=== PATIENT | female | born 1990 | race Caucasian/White ===

== ENCOUNTER 2023-02-12 18:08 | Inpatient (IN) | payer OTHER, SELFPAY ==
[2023-02-12 18:40] VITALS: BMI 30.3
--- NOTE | 2023-02-12 19:06 | PC.NURSE ---
pt arrive on unit at 1815. staff perform skin check and pt signed a CV. pt was placed on 5 min check and safety tray due to history of cutting.
[2023-02-12] MEDS: clonazePAM 0.5 MG TABLET 1.5 MG PO (20:27)
[2023-02-12] MEDS: Acetaminophen 325 MG TABLET 650 MG PO (20:28)
--- NOTE | 2023-02-12 20:50 | HO.PM.IMCN ---
History of Present Illness Data of Consult Service Date: 02/12/23 Primary Care Provider: Unknown Physician HPI Reason for consult: Admission H&P Pt is a 32-year-old female with a PMH significant for?ADHD, PTSD, borderline personality disorder, MDD with psychotic features, self harm behaviors, and multiple psychiatric hospitalizations who is admitted to [facility] psychiatry unit for increased anxiety, incoherent speech, and disorganized thoughts. Patient apparently went into a gas station to purchase gas, gave them 20 dollars, and then found of the gas pump was not working, which worsened her underlying anxiety. Medical consult for admission H&P. Attempted to see patient in her room, but patient refused interview and examination. Said that she did not want to talk at this time. When asked if she had any acute medical complaints, patient reported only having a headache. Review of Systems Review of Systems: Headache Patient denies any other acute medical complaints at this time Yes all other systems are reviewed and are negative PMFSH Social History Advance Directives: No Meds Allergies Allergy/AdvReac Type Severity Reaction Status Date / Time seafood Allergy Unknown Verified 02/12/23 18:24 Active Medications: Current Medications Acetaminophen (Acetaminophen 325 Mg Tablet) 650 mg PO Q6H PRN PRN Reason: Headache/Pain Mild Scale (1-3) Last Admin: 02/12/23 20:28 Dose: 650 mg Al Hydroxide/Mg Hydroxide (Magnesium Hydrox/Alum Hydrox 30 Ml Oral.Susp) 30 ml PO Q6H PRN PRN Reason: Heartburn/Nausea Amphetamine/Dextroamphetamine (Amphetamine Mixed Salts 10 Mg Tablet) 10 mg PO TID SERENITY Clonazepam (Clonazepam 0.5 Mg Tablet) 1.5 mg PO BID SERENITY Last Admin: 02/12/23 20:27 Dose: 1.5 mg Clonidine HCl (Clonidine Hcl 0.2 Mg Tablet) 0.2 mg PO BEDTIME SERENITY; Protocol Duloxetine HCl (Duloxetine Hcl 60 Mg Capsule.Dr) 60 mg PO BID SERENITY Escitalopram Oxalate (Escitalopram Oxalate 20 Mg Tablet) 20 mg PO DAILY SERENITY Hydroxyzine HCl (Hydroxyzine Hcl 25 Mg Tablet) 25 mg PO Q6H PRN PRN Reason: Anxiety Hydroxyzine HCl (Hydroxyzine Hcl 50 Mg Tablet) 100 mg PO BEDTIME SERENITY Lamotrigine (Lamotrigine 100 Mg Tablet) 200 mg PO DAILY SERENITY Lamotrigine (Lamotrigine 100 Mg Tablet) 250 mg PO BEDTIME SERENITY Magnesium Hydroxide (Milk Of Magnesia 30 Ml Oral.Susp) 30 ml PO DAILY PRN PRN Reason: Constipation Olanzapine (Olanzapine Odt 10 Mg Tab.Rapdis) 10 mg TRANSLINGU BID PRN PRN Reason: dissociation, agitation Trazodone HCl (Trazodone Hcl 50 Mg Tablet) 50 mg PO BEDTIME MRX1 PRN PRN Reason: Insomnia Zolpidem Tartrate (Zolpidem Tartrate 5 Mg Tablet) 5 mg PO BEDTIME [facility] Home Medications Medication Instructions Recorded Confirmed Last Taken Type clonazepam 1 mg tablet 1.5 mg PO BID 02/12/23 02/12/23 Unknown History clonidine HCl 0.2 mg tablet 0.2 mg PO BEDTIME 02/12/23 02/12/23 Unknown History dextroamphetamine-amphetamine 10 1 tab PO TID 02/12/23 02/12/23 Unknown History mg tablet duloxetine 60 mg capsule,delayed 60 mg PO BID 02/12/23 02/12/23 Unknown History release escitalopram oxalate 20 mg tablet 20 mg PO DAILY 02/12/23 02/12/23 Unknown History hydroxyzine HCl 50 mg tablet 100 mg PO BEDTIME 02/12/23 02/12/23 Unknown History lamotrigine 200 mg tablet 200 mg PO BID 02/12/23 02/12/23 Unknown History lamotrigine 25 mg tablet 50 mg PO BEDTIME 02/12/23 02/12/23 Unknown History zolpidem 5 mg tablet 10 mg PO BEDTIME PRN insomnia 02/12/23 02/12/23 Unknown History Physical Exam Vital Signs and Narrative: Vital Signs: BMI result Body Mass Index 30.3 Patient refused physical examination Assessment and Plan (1) Medical clearance for psychiatric admission: Status: Acute Plan Pt is a 32-year-old female with a PMH significant for?ADHD, PTSD, borderline personality disorder, MDD with psychotic features, self harm behaviors, and multiple psychiatric hospitalizations who is admitted to [facility] psychiatry unit for increased anxiety, incoherent speech, and disorganized thoughts. Patient apparently went into a gas station to purchase gas, gave them 20 dollars, and then found of the gas pump was not working, which worsened her underlying anxiety. Medical consult for admission H&P. Attempted to see patient in her room, but patient refused interview and examination. Mood disorder Plan as per Psychiatry ADHD Continue dextroamphetamine-amphetamine Headache Acetaminophen for pain management Thank you for allowing us to participate in the care of this patient. Signing off at this time. Please let us know if there are any acute complaints or questions. Time Spent With Patient Time: Total time managing care of this patient today ____ minutes.
[2023-02-12] MEDS: lamoTRIgine 100 MG TABLET 250 MG PO (22:13)
[2023-02-12] MEDS: hydrOXYzine HCL 50 MG TABLET 100 MG PO (22:15)
[2023-02-12] MEDS: DULoxetine HCl 60 MG CAPSULE.DR PO (22:15)
[2023-02-12] MEDS: cloNIDine HCL 0.2 MG TABLET PO (22:16)
[2023-02-12] MEDS: Zolpidem Tartrate 5 MG TABLET PO (22:16)
[2023-02-12 22:40] VITALS: BP 132/83; PULSE 98; RESP 18; TEMP 36.6; O2SAT 98
--- NOTE | 2023-02-13 01:50 | PC.ADMIT ---
Марина Anderson is a 32yo female admitted from [facility] on for treatment of SI, PTSD and MDD. She is endorsing SI with no plan and paranoia surrounding a situation prior to her admission where she went to get gas then proceeded to leave and come back a few times due to feeling scared and confused . She is non-medication compliant and have history of MDD with psychotic features, PTSD, ADD, and borderline personality disorder. She was noted to be scratching/picking on the superficial wound on her arm and states that I am hearing voices telling me to hurt myself [auditory hallucination] and I am not feeling self on the unit . Pt currently endorses SI, AH and engages in self harm during admission process hence was placed on 1:1 observation for safety. She denies HI/VH and any medical condition, mood is flat and affect is anxious. Scheduled and PRN Meds administered. Treatment plan and safety tools initiated.
[2023-02-13 09:00] VITALS: BP 134/83; PULSE 93; RESP 16; TEMP 36.3; O2SAT 99
[2023-02-13] MEDS: Amphetamine Mixed Salts 10 MG TABLET PO ×2 (09:08→14:12)
[2023-02-13] MEDS: lamoTRIgine 100 MG TABLET 200 MG PO (09:09)
[2023-02-13] MEDS: DULoxetine HCl 60 MG CAPSULE.DR PO (09:10)
[2023-02-13] MEDS: Escitalopram Oxalate 20 MG TABLET PO (09:10)
[2023-02-13 09:13] LABS: Estimated Average Glucose 97 mg/dL
[2023-02-13 09:28] LABS: Alanine Aminotransferase 12 U/L (0-31); Albumin Level 3.8 g/dL (3.5-5.0); Alkaline Phosphatase 62 U/L (39-117); Anion Gap 10 (12-20); Aspartate Amino Transferase 21 U/L (5-31); Bilirubin Total 0.2 mg/dL (0.0-1.0); Blood Urea Nitrogen 12 mg/dL (9-16); Calcium 8.8 mg/dL (8.4-10.2); Carbon Dioxide 28 mmol/L (22-29); Chloride 108 mmol/L (96-108); Cholesterol 253 mg/dL (<200); Creatinine Clr Calc Pharmacy 90.8; Estimated Glomerular Filt Rate > 60; Glucose Fasting 105 mg/dL (60-99); HDL Cholesterol 41 mg/dL (>40); LDL Cholesterol Calculated 176 mg/dL (<100); Magnesium 2.2 mg/dL (1.6-2.6); Potassium 3.6 mmol/L (3.3-5.1); Sodium 142 mmol/L (135-145); Total Protein 6.1 g/dL (6.5-8.0); Triglycerides 184 mg/dL (<150)
--- NOTE | 2023-02-13 09:44 | HO.PSYADMNOT ---
HPI Date of Service: 02/13/23 Chief Complaint: Borderline personality disorder, ADHD Sources of Information: patient interviewed, chart reviewed and crisis/core team assessment reviewed HPI Subjective Notes: Mcaky Warning (given and shows understanding) and Conditional Voluntary Narrative: Ms. Anderson is a 32 year-old woman with hx of BPD, ADHD who was brought via EMS to [place] ED on 02/12 initially from work due to having panic attack. She was discharged and she went home. She reported she went to gas station and felt staff there were rude to her. She later went to her sister's house and apparently presenting as dysregulated and anxious. She denied any plan or intent to end her life but pt reported in the ED, intermittent thoughts of crashing her car. In the ED, utox negative for amphetamines, opiods, cocaine or benzo. On the unit, pt presented as dysphoric, attempting to cut her wrist. Pt was placed on 1:1. When seen today, pt reports she has not had urges to engage in self injurious behaviors in several month. 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 She states she is struggling with completing her work, relationships with others, feeling over stimulated. 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 She denies suicidal ideation. But she does endorsed feeling overwhelmed with intermittent thoughts of self harm when she feels things may not get better. No signs of psychosis or delusions. Pt reports struggling for a long time with mood changes, intermittent suicidal ideation or urges to self harm which are not always signs of suicidality. Past Psychiatric History: Inpatient: multiple in the past. Last one 07/13/2022. OP: Swapna Reanai Past medication trials: lamictal, ambien, clonazepam, adderall, clonidine Medical Evaluation Reviewed: Yes Diagnostics Vital Signs (24Hr): Vital Signs - 24 hr 02/12/23 22:40 Temperature 97.9 F Pulse Rate 98 Respiratory Rate 18 Blood Pressure 132/83 Pulse Oximetry 98 Oxygen Delivery Method Room Air BMI result Body Mass Index 30.3 Labs 02/13/23 08:53 Labs: Laboratory Results - last 48 hr 02/13/23 08:53 Sodium 142 Potassium 3.6 Chloride 108 Carbon Dioxide 28 Anion Gap 10 L BUN 12 Creatinine 0.86 Estim Creat Clear Calc 90.8 Estimated GFR > 60 Fasting Glucose 105 H Estimat Average Glucose 97 Hemoglobin A1c % 5.0 Calcium 8.8 Magnesium 2.2 Total Bilirubin 0.2 AST 21 ALT 12 Alkaline Phosphatase 62 Total Protein 6.1 L Albumin 3.8 Triglycerides 184 H Cholesterol 253 H LDL Cholesterol, Calc 176 H HDL Cholesterol 41 Meds/Allergies Meds Home Medications Medication Instructions Recorded Confirmed Type clonazepam 1 mg tablet 1.5 mg PO BID 02/12/23 02/12/23 History clonidine HCl 0.2 mg tablet 0.2 mg PO BEDTIME 02/12/23 02/12/23 History dextroamphetamine-amphetamine 10 1 tab PO TID 02/12/23 02/12/23 History mg tablet duloxetine 60 mg capsule,delayed 60 mg PO BID 02/12/23 02/12/23 History release escitalopram oxalate 20 mg tablet 20 mg PO DAILY 02/12/23 02/12/23 History hydroxyzine HCl 50 mg tablet 100 mg PO BEDTIME 02/12/23 02/12/23 History lamotrigine 200 mg tablet 200 mg PO BID 02/12/23 02/12/23 History lamotrigine 25 mg tablet 50 mg PO BEDTIME 02/12/23 02/12/23 History zolpidem 5 mg tablet 10 mg PO BEDTIME PRN insomnia 02/12/23 02/12/23 History Allergies Allergies Allergy/AdvReac Type Severity Reaction Status Date / Time seafood Allergy Unknown Verified 02/12/23 18:24 Mental Status Exam Mental Status Exam Narrative: Appearance: casually groomed, fair hygiene, in NAD behavior: cooperative Psychomotor: no agitation or retardation noted Speech: clear, normal rate, rhythm/volume, spontaneous TP: tangential TC: no s/s of psychosis, delusions, future oriented Mood: anxious Affect: dysphoric SI: intermittent urges to self harm, not suicidal HI: none VH/AH: none Insight/judgment: fair x 2. Memory/cog: alert, oriented x 3. grossly intact to conversational testing. Assessment & Plan Assessment & Plan (1) Borderline personality disorder: Status: Acute Code(s): F60.3 - Borderline personality disorder Plan Ms. Anderson is a 32 year-old woman with hx of BPD who as assessed at ED twice on 02/13/23 initially was sent from work as she was having a panic attack and later at suggestion of her sister as pt presented as more anxious, disorganized. On the unit, pt presents as dysphoric. She did attempt to cut wrist while on the unit. We discussed her symptoms of BPD which include mood disregulation, perceived rejection or abandonment, urges to self harm which not always represent true signs of suicidality She presents as future oriented, wanting to return to work and continues outpatient therapy. Pt agree that she is not suicidal and wants to return home but her ability to tolerate frustration or delay gratification is limited leading to dysphoric and dysregulated affect. Collateral information from sister who reports these have been chronic and ongoing. We discussed that inpatient setting in setting of BPD often leads to regression, increase self harm behaviors, and prevents patient to access more effective therapeutic interventions. PLAN 1. Admit M3, CV 2. continue current medications 3. collateral information has been obtained. Agree with discharge as longer admission would be detrimental in that it will increase self harm/ self injurious behaviors. Patient educated on: diagnosis Reason for continued inpatient stay Substantial Risk for: stable for discharge Statement Statement: I have reviewed the history and physical and performed a pertinent examination on my patient. No changes have occurred unless specified. If the History and Physical was not performed prior to admission, the Hospitalist's service will be consulted for completing the admission physical. Time Spent With Patient Time: Total time managing care of this patient today ____ minutes.
[2023-02-13 09:45] LABS: Free T4 (Free Thyroxine) 0.82 ng/dL (0.71-1.85); Thyroid Stimulating Hormone 0.59 uIU/mL (0.32-4.0)
[2023-02-13 10:06] LABS: Folate 12.3 ng/mL (> or = 4.0); Vitamin B12 553 pg/mL (200-900)
[2023-02-13] MEDS: clonazePAM 0.5 MG TABLET 1.5 MG PO (12:35)
--- NOTE | 2023-02-13 14:13 | P.DS_ITS ---
DS: Providers Provider Date of Service: 02/13/23 Date of admission: 02/12/23 18:08 Primary care physician: Unknown Physician Consults: 02/12/23 18:12 Consult to Hospitalist Routine Comment: Consulting Provider: Hospitalist Reason For Exam: Transfer from [place] DS: Diagnosis Discharge Diagnosis (1) Borderline personality disorder: Status: Acute DS: Medications Discharge Medications Home Medications: Home Medications Medication Instructions Recorded Confirmed clonazepam 1 mg tablet 1.5 mg PO BID 02/12/23 02/12/23 clonidine HCl 0.2 mg tablet 0.2 mg PO BEDTIME 02/12/23 02/12/23 dextroamphetamine-amphetamine 10 1 tab PO TID 02/12/23 02/12/23 mg tablet duloxetine 60 mg capsule,delayed 60 mg PO BID 02/12/23 02/12/23 release escitalopram oxalate 20 mg tablet 20 mg PO DAILY 02/12/23 02/12/23 hydroxyzine HCl 50 mg tablet 100 mg PO BEDTIME 02/12/23 02/12/23 lamotrigine 200 mg tablet 200 mg PO BID 02/12/23 02/12/23 lamotrigine 25 mg tablet 50 mg PO BEDTIME 02/12/23 02/12/23 zolpidem 5 mg tablet 10 mg PO BEDTIME PRN insomnia 02/12/23 02/12/23 Mental Status Exam Mental Status Exam Narrative: Appearance: casually groomed, fair hygiene, in NAD behavior: cooperative Psychomotor: no agitation or retardation noted Speech: clear, normal rate, rhythm/volume, spontaneous TP: tangential TC: no s/s of psychosis, delusions, future oriented Mood: anxious Affect: dysphoric SI: intermittent urges to self harm, not suicidal HI: none VH/AH: none Insight/judgment: fair x 2. Memory/cog: alert, oriented x 3. grossly intact to conversational testing. Data Data Completed and Pending Completed studies during hospitalization [Text1]: 02/13/23 08:53 Sodium 142 Potassium 3.6 Chloride 108 Carbon Dioxide 28 Anion Gap 10 L BUN 12 Creatinine 0.86 Estim Creat Clear Calc 90.8 Estimated GFR > 60 Fasting Glucose 105 H Estimat Average Glucose 97 Hemoglobin A1c % 5.0 Calcium 8.8 Magnesium 2.2 Total Bilirubin 0.2 AST 21 ALT 12 Alkaline Phosphatase 62 Total Protein 6.1 L Albumin 3.8 Triglycerides 184 H Cholesterol 253 H LDL Cholesterol, Calc 176 H HDL Cholesterol 41 Vitamin B12 553 Folate 12.3 TSH 0.59 Free T4 0.82 DS: Summary Hospital Course Hospital Course: Ms. Anderson is a 32 year-old woman with hx of BPD who as assessed at ED twice on 02/13/23 initially was sent from work as she was having a panic attack and later at suggestion of her sister as pt presented as more anxious, disorganized. On the unit, pt presented as dysphoric. She did attempt to cut wrist while on the unit. We discussed her symptoms of BPD which include mood disregulation, p erceived rejection or abandonment, urges to self harm which not always represent true signs of suicidality She presents as future oriented, wanting to return to work and continue outpatient therapy. Pt agree that she is not suicidal and wants to return home but her ability to tolerate frustration or delay gratification is limited leading to dysphoric and dysregulated behaviors. Collateral information from sister who reports these have been chronic and ongoing. We discussed that inpatient setting in setting of BPD often leads to regression, increase self harm behaviors, and prevents patient to access more effective therapeutic interventions. Pt did not present with any signs of psychosis or delusions. Her thought process can be tangential at times but logical. Status at Discharge Cognitive/behavioral status at discharge: Pt with intermittent dysphoric affect but able to self regulate when having conversation about her treatment plan and safety plan. No SI/HI, although she does have intermittent urges to self harm when feeling emotionally distress that are not reflection of suicidal ideation. No s/s of psychosis. Impulsive tendencies which pose a halfway, chronic risk of self harm not due to suicidality. Functional status at discharge: independent ambulation Overall status at discharge: patient is progressing back to baseline Time Spent with Patient Time attestation: Total time managing care of this patient today _45___ minutes. Time spent: Greater than 30 minutes Discharge Plan Discharge Anticipated Discharge Date/Time: 02/13/23 14:18 Patient Disposition: Home, Self-Care Discharge Diagnosis: BPD Referrals: Swapna Lopez (Psychiatry) [Other] - 03/13/23 3:30 pm (TELEHEALTH APPOINTMENT) Ena Gutierrez (Therapist) [Other] - 1 Week (Please follow up with your therapist regarding your next appointment) Physician,Vijay J [Primary Care Provider] - 1 Week Discharge Medications: Continued lamotrigine 200 mg tablet 200 mg PO BID dextroamphetamine-amphetamine 10 mg tablet 1 tab PO TID clonazepam 1 mg tablet 1.5 mg PO BID hydroxyzine HCl 50 mg tablet 100 mg PO BEDTIME lamotrigine 25 mg tablet 50 mg PO BEDTIME clonidine HCl 0.2 mg tablet 0.2 mg PO BEDTIME zolpidem 5 mg tablet 10 mg PO BEDTIME PRN (Reason: insomnia) escitalopram oxalate 20 mg tablet 20 mg PO DAILY duloxetine 60 mg capsule,delayed release(DR/EC) 60 mg PO BID Discharge Orders: Discharge Order (Routine); Ordered 02/13/23 Ordered By: Dolly Arellano Diet: Regular diet Activity on Discharge: As tolerated Stand Alone Forms: Patient Portal Discharge page Care Plan Goals: 1. Maintain mood 2. No self harm behaviors 3. develop safety plan Health Concerns: Follow up with PCP Plan of Treatment: 1. Take medications as prescribed 2. Go to nearest ED or call 911 in event of emergency Assessment: pt presents with periods of intermittent dysphoric affect. Intermittent urges to self harm that are not reflection of suicidality. Pt presents as future oriented. No signs of psychosis or delusions. Pt to continue outpatient tx as inpatient may be detrimental in that in increases self injurious behaviors without therapeutic intervention to continue working on self-regulation, safety, and less impulsive behaviors.
== END 2023-02-13 15:31 | disposition home or self-care (01) | DRG 883 ==
PROVIDERS: Clinical Nurse Specialist Psychiatric/Mental Health, Adult; Admitting Provider Psychiatry & Neurology Psychiatry; Visit Provider Psychiatry & Neurology Psychiatry
DX: F60.3 Borderline personality disorder (principal); F43.10 Post-traumatic stress disorder, unspecified; F90.9 Attention-deficit hyperactivity disorder, unspecified type; Z91.52 Personal history of nonsuicidal self-harm; Z79.899 Other long term (current) drug therapy
CPT/HCPCS: 36415; 80053; 80061; 82607; 82746; 83036; 83735; 84439; 84443

== ENCOUNTER → 2023-02-12 18:08 | Outpatient (BNV) | payer OTHER, SELFPAY | PROVIDERS: Admitting Provider Psychiatry & Neurology Psychiatry; Visit Provider Student in an Organized Health Care Education/Training Program | DX: R51.9 Headache, unspecified (principal) | CPT/HCPCS: 99221 ==

== ENCOUNTER → 2023-02-12 18:08 | Outpatient (BNV) | payer OTHER, SELFPAY | PROVIDERS: Admitting Provider Psychiatry & Neurology Psychiatry; Visit Provider Social Worker | DX: F60.3 Borderline personality disorder (principal) | CPT/HCPCS: 90792; 99499 ==